=== PATIENT | male | born 2000 | race African-American/Black ===

== ENCOUNTER 2020-08-30 23:51 | Emergency (ER) | payer OTHER ==
[~2020-08-30 23:51] MED LIST: AMOXICILLIN500 MG PO; BENTYL10 MG PO; PROTONIX 40MG T40 MG PO; ZOFRAN4 MG PO
[2020-08-31] MEDS ORDERED: AZITHROMYCIN250 MG PO (02:04)
[2020-08-31] MEDS ORDERED: TESSALON PERLE100 M1 PO (02:04)
== END 2020-08-31 02:15 | disposition home or self-care (01) ==
LOC: FER 23:51
DX: J40 Bronchitis, not specified as acute or chronic (principal); Z86.711 Personal history of pulmonary embolism; Z86.718 Personal history of other venous thrombosis and embolism; Z87.09 Personal history of other diseases of the respiratory system
CPT/HCPCS: 36415; 71046; 85379

== ENCOUNTER 2021-08-23 02:02 | Emergency (ER) | payer OTHER ==
[~2021-08-23 02:02] MED LIST changes: +AZITHROMYCIN250 MG PO; +TESSALON PERLE100 M1 PO
== END 2021-08-23 02:51 | disposition home or self-care (01) ==
LOC: FER 02:02
DX: J45.909 Unspecified asthma, uncomplicated (principal)